=== PATIENT | male | born 1935 | race African-American/Black ===

== ENCOUNTER 2019-06-30 20:02 | Emergency (ER) | payer MEDICARE, BC ==
[~2019-06-30 20:02] MED LIST: Iopamidol 370 76% 100 ML VIAL ONE
--- NOTE | 2019-06-30 20:21 | RAD ---
SINGLE VIEW OF THE CHEST: 06/30/19 COMPARISON: None. HISTORY: Crush injury from machinery. Pain. Tire escoto in the lumbar region. FINDINGS: Single view of the chest shows an enlarged cardiomediastinal silhouette. There is a pacemaker with it s leads in the right atrium and ventricle. There is no evidence of consolidation, mass, or pleural ef fusion. Degenerative changes are seen in the spine.. IMPRESSION: Cardiomegaly. POS: NEMOA
--- NOTE | 2019-06-30 20:53 | CT ---
CT OF THE CERVICAL SPINE WITHOUT CONTRAST: 06/30/19 COMPARISON: None. HISTORY: Crush injury by machinery with neck pain. TECHNIQUE: Multiple contiguous axial images were obtained in a CT of the cervical spine without contrast. Sagitt al and coronal reformats were performed. FINDINGS: There are moderate degenerative changes throughout the cervical spine. The vertebral bodies demonstra te normal height and alignment without acute fracture or subluxation. No prevertebral soft tissue swe lling is seen. The posterior facets are well aligned. Normal alignment of the skull base with the cervical spine is seen. IMPRESSION: Moderate degenerative changes of the cervical spine without acute osseous abnormality. Dr. Posada notified of the findings at 8:30 p.m. on 06/30/19. POS: LEONARD
--- NOTE | 2019-06-30 21:11 | CT ---
CT OF THE CHEST WITH CONTRAST CT OF THE ABDOMEN AND PELVIS WITH CONTRAST LIMITED CT OF THE THORACIC AND LUMBOSACRAL SPINES WITH CONTRAST. 06/30/19 HISTORY: Crush injury by machinery. Chest pain, abdominal pain and lumbar back pain. TECHNIQUE: 1. Multiple contiguous axial images were obtained in a CT of the chest with contrast. Sagittal a nd coronal reformats were performed. 2. Multiple contiguous axial images were obtained in a CT of the abdomen and pelvis with contras t. Sagittal and coronal reformats were performed. 3. Limited CT of the thoracic and lumbosacral spines were performed. Sagittal and coronal reform ats were created based off images obtained in the chest, abdomen and pelvic CTs. FINDINGS: CT CHEST: No pneumothorax or pleural effusion are seen. There are small calcified pleural plaques bilaterally. No focal infiltrates or pulmonary nodules are seen. The heart is normal in size. There is a pacemaker with its leads in the right atrium and ventricle. N o hilar or mediastinal lymphadenopathy are seen. The bones of the chest and chest wall soft tissues are unremarkable. The thyroid is unremarkable. CT ABDOMEN/PELVIS: The liver, gallbladder, kidneys, adrenal glands, spleen, and pancreas are unremarkable. No free air, free fluid or stranding changes are seen in the abdomen or pelvis. Scattered diverticula are seen in the colon. The small bowel and appendix are unremarkable. 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 N o abdominal or pelvic lymphadenopathy are seen. The abdominal wall soft tissues are unremarkable. The bones of the pelvis are unremarkable. LIMITED CT OF THE THORACIC AND LUMBOSACRAL SPINE: Moderate degenerative changes are seen throughout the spine. The vertebral bodies demonstrate normal height and alignment without acute fracture or subluxation. IMPRESSION: 1. No evidence of acute intrathoracic abnormality. 2. Bilateral pleural plaques may be secondary to prior asbestos exposure. 3. No evidence of acute intra-abdominal/pelvic abnormality. 4. Diverticulosis. 5. Abdominal aortic aneurysm. 6. Degenerative change of the spine without acute osseous abnormality of the thoracic or lumbosa cral spine. Dr. Posada notified of the findings at 8:35 p.m. on 06/30/19. POS: EAA
--- NOTE | 2019-07-03 14:08 | EKG ---
Test Reason : LEVEL 2 TRAUMA Blood Pressure : / mmHG Vent. Rate : 075 BPM Atrial Rate : 075 BPM P-R Int : 246 ms QRS Dur : 138 ms QT Int : 414 ms P-R-T Axes : 046 -75 -13 degrees QTc Int : 462 ms Demand pacemaker; interpretation is based on intrinsic rhythm Sinus rhythm with 1st degree A-V block with occasional Premature ventricular complexes and Premature atrial complexes Left axis deviation Right bundle branch block Inferior infarct , age undetermined Abnormal ECG Confirmed by LARISSA MCDONALD ([id number]), purchasing expeditor JOSE MARIA LYN ([id number] on 07/03/2019 2:08:04 PM Referred By: Confirmed By:LARISSA MCDONALD
== END 2019-06-30 21:54 | disposition home or self-care (01) ==
LOC: ERS 20:02
DX: S39.012A Strain of muscle, fascia and tendon of lower back, initial encounter (principal); I71.4 Abdominal aortic aneurysm, without rupture; I10 Essential (primary) hypertension; I48.91 Unspecified atrial fibrillation; V69.9XXA Occupant (driver) (passenger) of heavy transport vehicle injured in unspecified traffic accident, initial encounter
CPT/HCPCS: 71045; 71260; 72125; 74177; 93005; 99284; Q9967; G0390